=== PATIENT | male | born 1945 | race Caucasian/White ===

== ENCOUNTER → 2022-06-13 | Outpatient (CLI) | payer MEDICARE, OTHER ==
[~2022-06-13] MED LIST: AMLO5 PO; ASPI325 PO; ASPI81CH PO; ATOR20 PO; CLOP75 PO; LISI20 PO; NIFE30ER PO; ZOLP5 PO
== END | disposition home or self-care (01) ==
LOC: LAB SHORT 11:15 → PLD 11:15
DX: C44.319 Basal cell carcinoma of skin of other parts of face (principal)
CPT/HCPCS: 88305

== ENCOUNTER 2023-03-10 08:48 | Day surgery (SDC) | payer MEDICARE, OTHER ==
[2023-03-10] VITALS (11 sets, daily range): BP systolic 127–167; BP diastolic 73–99
[~2023-03-10] VITALS: Ht 175.3 cm; Wt 103.4 kg
[~2023-03-10 08:48] MED LIST changes: +Ambien5 MG PO; +ELIQUIS5 M2 PO; +FURO40 PO; +METO25ER PO; +POTA10T PO
--- NOTE | 2023-03-10 09:35 | NUR ---
DR. RUBIO AT THE BESIDE AND SPOKE PRE OP WITH THE PATIENT AND HIS .
--- NOTE | 2023-03-10 11:26 | NUR ---
PT REPORT FROM TAMMIE CARRERA. PT A&Ox4. PT SITTING UP IN RECLINER EATING. DR RUBIO AT BEDSIDE DISCUSSING TREATMENT PLAN W/ PT AND .
--- NOTE | 2023-03-10 11:40 | NUR ---
DR. RUBIO AT THE BEDSIDE AND SPOKE WITH THE PATIENT AND POST OP REGARDING RESULTS. PATIENT WISHES TO GO TO [place] FOR CARE.
--- NOTE | 2023-03-10 11:41 | NUR ---
RUBEN SERVED, PATINET IN RECLINER, MONITOR APPLIED, RIGHT RADIAL SITE WITH TR BAND IN PLACE. FAMILY AT THE BEDSIDE. VVS. NO BLEEDING, NO HEMATOMA AT THE TR BAND SITE.
--- NOTE | 2023-03-10 12:37 | NUR ---
pt ambulated to restroom w/o assistance. pt now back in recliner. repeat v/s. radial site soft and non-tender per pt. 2CC removed from tr band.
--- NOTE | 2023-03-10 12:58 | NUR ---
2CC removed from tr band. no bleeding noted. site soft and non-tender per pt.
--- NOTE | 2023-03-10 13:07 | NUR ---
2cc removed from tr band. no bleeding noted. site soft and non-tender per pt.
--- NOTE | 2023-03-10 14:18 | NUR ---
PATIENT PIV REMOVED, CATH TIP INTACT. PRESSURE DRESSING APPLIED. REVIEWED DISCHARGE INSTRUCTIONS. TR BAND REMOVED AND SITE CLEANED AND CLOTH DOT PLACED. WHITE BOARD REPLACED. SPOKE AT [facility] WITH THE AND PATIENT ABOUT PENDING APPOINTMENT FOR SURGICAL CONSULT AND THAT THEY WILL CALL AND SCHEDULE THIS WITH PATRICIA. PATIENT IS DISCHARGE HOME VIA WHEELCHAIR.
== END 2023-03-10 14:45 | disposition home or self-care (01) ==
LOC: MHTC 08:48
DX: I25.118 Atherosclerotic heart disease of native coronary artery with other forms of angina pectoris (principal); I47.29 Other ventricular tachycardia; I51.7 Cardiomegaly; I48.0 Paroxysmal atrial fibrillation; I49.1 Atrial premature depolarization; I49.3 Ventricular premature depolarization; I47.1 Supraventricular tachycardia; I10 Essential (primary) hypertension; E78.5 Hyperlipidemia, unspecified; F10.10 Alcohol abuse, uncomplicated; J44.9 Chronic obstructive pulmonary disease, unspecified; Z79.01 Long term (current) use of anticoagulants; Z79.82 Long term (current) use of aspirin
CPT/HCPCS: 76937; 93454; 99152; A9270; C1769; C1887; C1894; J1644; J2250; J3010; J7030; J7050; Q9967